=== PATIENT | female | born 1940 | race Caucasian/White ===

== ENCOUNTER 2016-12-03 10:00 | Inpatient (IN) | payer MEDICARE, OTHER ==
[~2016-12-03] VITALS: Ht 154.9 cm; Wt 87.1 kg
--- NOTE | ~2016-12-03 | OR ---
PATIENT'S NAME: SELINA COCHRAN [facility] [place] AGE: 76 Y [address] ROOM: [place] [address] LOCATION: G3N ADMIT DATE: 12/09/2016 OR/Procedure Report DISCHARGE DATE: FAMILY PHYSICIAN: Jennie Dunham MD ATTENDING PHYSICIAN: YRN VILLAR SURGEON: Yrn Villar MD MATERIAL LOADER: Jesus Damon PA-C. An physician assistant psychiatry was necessary during the entire case. The physician assistant psychiatry helped with positioning the limb in space, soft tissue retraction, glenoid exposure, as well as implant placement and wound closure. DATE OF PROCEDURE: 12/09/2016 PREOPERATIVE DIAGNOSIS: Left shoulder humeral head collapse following a proximal humerus fracture. POSTOPERATIVE DIAGNOSIS: Left shoulder humeral head collapse following a proximal humerus fracture. PROCEDURE: 1. Left shoulder reverse total shoulder arthroplasty for failed conservative treatment of a left proximal humerus fracture. 2. Open biceps tenodesis. ANESTHESIA: General. ESTIMATED BLOOD LOSS: 150-200 mL. DRAINS: None. SPECIMENS: None. COMPLICATIONS: None. INDICATIONS: Selina Cochran is a 76-year-old female. She recently presented to my clinic after she had a ground-level fall after she had slipped in August 2016. At that point, she had x-rays as well as an MRI scan from an outside institution. She did have a proximal humerus fracture. There was not any significant displacement when I reviewed the x-rays and the MRI. We initially tried to treat this in a conservative nature. We placed her in a sling and had her work on pendulum exercises. When she came back in for followup x-rays, I was able to see that there was evidence of collapse of the humeral head. We continued to work with physical therapy. At the most recent followup appointment, however, she continued to have significant pain. A CT scan was obtained. The CT scan did show a significant collapse of the humeral head as well as some cystic changes within the glenoid. The CT scan was of PATIENT'S NAME: SELINA COCHRAN [facility] [place] AGE: 76 Y [address] ROOM: [place] [address] LOCATION: G3 ADMIT DATE: 12/09/2016 OR/Procedure Report DISCHARGE DATE: FAMILY PHYSICIAN: Jennie Dunham MD ATTENDING PHYSICIAN: YRN VILLAR concern for potential septic arthritis. She denied any fevers or chills, and she had good motion with pendulums. Her passive motion was limited in forward flexion as well as abduction. I felt the majority of her pain was secondary to the flattening of the humeral head. For that reason, we talked about surgical options. We talked about bleeding, infection, damage to the surrounding structures, potential need for future surgery, stiffness, as well as the risks of anesthesia, including but not limited to heart attack, stroke, pneumonia, and . She was a cancer survivor, but did not have any shoulder pain prior to the fall and actually slipped on the ice. Given the flattening of the humeral head, we talked about anatomic arthroplasty options and reverse shoulder arthroplasty options. She understood the risks and elected to proceed. PROCEDURE IN DETAIL: Surgical marking pen was used to correctly identify the left shoulder as the surgical site. Consent was signed and dated. She was taken back to the operative suite and placed supine on the OR table. She underwent general anesthesia. A time-out was called by myself. During the time-out, the patient, the procedure to be performed, the dosing of the preoperative antibiotics, and the postoperative plan were reviewed by everyone in the room. At this point, she was positioned in a beach-chair position. All bony prominences were well padded. The left upper extremity was then prepped and draped in a standard sterile fashion. I marked out the bony ends of the left shoulder. I then created the deltopectoral incision using a #15 blade scalpel. I dissected down through the skin and the subcutaneous tissue. The cephalic vein was identified. The cephalic vein was retracted laterally with the deltoid. I then incised the clavipectoral fascia. This exposed the subscapularis. The bursa was excised. I released the upper 1 cm of the pectoralis major tendon. The anterior humeral circumflex vessels were ligated. I then identified the long head of the biceps. There was significant tendinopathy surrounding the long head of the biceps. For that reason, I placed a stitch around the biceps and performed a soft tissue tenodesis to the upper 1 cm of that pectoralis major tendon. I then released the proximal extent of that biceps and released it off the supraglenoid tubercle. I released the subscapularis and capsule off the lesser tuberosity. As I externally rotated the arm, I was able to visualize the significant flattening as well as the cartilage loss over that humeral head. I then used the Tornier Aequalis System. I used a canal finder. I used the intramedullary guide and made my humeral cut at approximate 20 degrees of version. Given the fact that she had such extensive humeral head collapse, we did not take much bone. It was just a small wafer of bone. The wafer itself appeared pretty good. There was no significant purulence, and the bone itself was not soft. It did appear as a normal bone. At that point, I then sequentially broached up to a size 2. There was a little bit of greater tuberosity that the fracture line that I was able to visualize. For that reason, I placed a cerclage around that fracture line with a #2 FiberWire PATIENT'S NAME: SELINA COCHRAN [facility] [place] AGE: 76 Y [address] ROOM: [place] [address] LOCATION: [facility] ADMIT DATE: 12/09/2016 OR/Procedure Report DISCHARGE DATE: FAMILY PHYSICIAN: Jennie Dunham MD ATTENDING PHYSICIAN: YRN VILLAR. That reduced it very nicely. I was then able to broach up to a size 2. I used the planer to plane off to make sure that we had a nice even cut. Following that, I placed a humeral head protector. I then exposed the glenoid. A 360-degree labral excision was performed. I excised the capsule. I then used the centering guide to place the central guidepin. I then reamed over the top of that guidepin of the glenoid down to a subchondral bone. There was a cyst sitting anterior and inferior. I made certain to get to the base of that cyst. I then drilled the central PEG. I then placed the Aequalis reversed-threaded baseplate measuring [address]. I then placed 3 locking screws. They were all 4.5 mm. I was unable to place the inferior one because of the cyst. I then impacted the Aequalis centered glenoid sphere with a 25 mm baseplate. Once that was performed, I turned my attention back to the humeral head. I trialed a long size 2B stem with a 36, +6 reverse insert. I then reduced the shoulder. There was good soft tissue balance. She had forward flexion of greater than 140 degrees. She had 90 degrees of external rotation and 70 degrees of internal rotation. There was no lift-off. I felt comfortable with this construct. For that reason, the final implants were opened. I placed 6 drill holes through the lesser tuberosity. I then passed a #2 Ultrabraid suture through the drill holes. I then used simplicity P bone cement with tobramycin. This was mixed in a bowl on the back table. I then placed the cement around the metaphyseal portion of that proximal humerus as well as put a bowl upon the implant. I then impacted the implant into place which was a Tornier Ascend Flex long humeral stem size 2B with a 132.5 angle. It had a 36, +6 poly reversed insert in position. I allowed the cement to cure. I then reduced the shoulder, again took it through range of motion, and felt comfortable with the range of motion. I then fixed the subscap using #2 Ultrabraid stitches. Hemostasis had been achieved. No drain was necessary. I then closed the fascia with a 0 Vicryl. I then closed the skin with 2-0 Vicryl, followed by running 3-0 Monocryl, followed by camila. Dressings in the form of Xeroform, 4x4's, and Tegaderms were applied. She was placed into a sling. She was transferred to the recovery room. X-rays were taken in the recovery room. I then went ahead and allowed a regional nerve block to be administered. MD YAMILETH MURCIA/ana /[id number] d: 12/09/16 2312 t: 12/18/16 1527, OPERATIVE SUMMARY
[2016-12-03] MEDS ORDERED: BENICAR HCT 401 EACH PO (10:11)
[2016-12-03] MEDS ORDERED: GLUCOTROL 5MG XL5 MG PO (10:12)
[2016-12-03] MEDS ORDERED: PRAVACHOL40 MG PO (10:12)
[2016-12-03] MEDS ORDERED: JANUVIA 100 MG100 MG PO (10:12)
[2016-12-03] MEDS ORDERED: MIRAPEX0.25 MG PO (10:13)
[2016-12-03] MEDS ORDERED: PERCOCET 5-3251 EACH PO (10:14)
[2016-12-03] MEDS ORDERED: TYLENOL EXTRA500 MG PO (10:15)
[2016-12-10] MEDS ORDERED: ECOTRIN325 MG PO (09:09)
[2016-12-10] MEDS ORDERED: OXYCONTIN EXTEN10 MG PO (09:11)
[2016-12-10] MEDS ORDERED: DILAUDID 2MG(HYD2 MG PO (09:12)
== END 2016-12-10 10:51 | disposition disaster alternative care site (69) | DRG 483 ==
LOC: G3N 12-09 07:07
PROVIDERS: ADMIT Orthopaedic Surgery Sports Medicine
DX: S42.292A Other displaced fracture of upper end of left humerus, initial encounter for closed fracture (principal); W18.30XA Fall on same level, unspecified, initial encounter
CPT/HCPCS: C1713; C1776; J0171; J0690; J3010; J7030; J7120

== ENCOUNTER → 2017-04-06 | Outpatient (CLI) | payer MEDICARE, OTHER ==
[~2017-04-06] MED LIST: BENICAR HCT 401 EACH PO; DILAUDID 2MG(HYD2 MG PO; ECOTRIN325 MG PO; GLUCOTROL 5MG XL5 MG PO; JANUVIA 100 MG100 MG PO; MIRAPEX0.25 MG PO; OXYCONTIN EXTEN10 MG PO; PERCOCET 5-3251 EACH PO; PRAVACHOL40 MG PO; TYLENOL EXTRA500 MG PO
== END ==
LOC: LGSMG 09:53
DX: I12.9 Hypertensive chronic kidney disease with stage 1 through stage 4 chronic kidney disease, or unspecified chronic kidney disease (principal); N18.3 Chronic kidney disease, stage 3 (moderate); N25.81 Secondary hyperparathyroidism of renal origin; E55.9 Vitamin D deficiency, unspecified; E11.22 Type 2 diabetes mellitus with diabetic chronic kidney disease